=== PATIENT | male | born 1990 | race Caucasian/White ===

== ENCOUNTER 2021-09-15 06:42 | Emergency (ER) | payer OTHER | END 2021-09-15 08:07 | disposition home or self-care (01) | LOC: MW.ED 06:42 | DX: S52.301A Unspecified fracture of shaft of right radius, initial encounter for closed fracture (principal); S60.221A Contusion of right hand, initial encounter; W50.0XXA Accidental hit or strike by another person, initial encounter | CPT/HCPCS: 29105; 73090-26-RT; 73090-RT; 73130-26-RT; 73130-RT; 99282; 99283-25 ==